=== PATIENT | male | born 1955 | race Caucasian/White ===

== ENCOUNTER 2018-05-29 19:01 | Emergency (ER) | payer OTHER ==
[~2018-05-29] VITALS: Ht 167.6 cm; Wt 82.6 kg
[2018-05-29 19:08] VITALS: Ht 167.6 cm; Wt 82.6 kg
[2018-05-29 19:45] LABS: BASOPHIL % 0.4 % (0-2); PLATELET COUNT 246 x10^3mcL (130-400); RED CELL DISTRIBUTION WIDTH 13.4 % (11.5-14.5)
[2018-05-29 19:49] LABS: CALCIUM 8.5 mg/dL (8.5-10.1); CARBON DIOXIDE 25.2 mmol/L (21-32); CREATININE SERUM 1.3 mg/dL (0.7-1.3)
[2018-05-29 19:54] LABS: ALBUMIN 3.4 g/dL (3.4-5.0); BILIRUBIN TOTAL 0.3 mg/dL (0.20-1.00); TOTAL PROTEIN, SERUM 7.7 g/dL (6.4-8.2)
[2018-05-29 20:12] VITALS: BP 145/106
== END 2018-05-29 20:12 | disposition short-term general hospital (02) ==
LOC: ED 19:01
PROVIDERS: Emergency Medicine
DX: I63.9 Cerebral infarction, unspecified (principal); Z90.49 Acquired absence of other specified parts of digestive tract
CPT/HCPCS: 36415